=== PATIENT | female | born 1935 | race African-American/Black ===

== ENCOUNTER 2018-06-14 13:21 | Emergency (ER) | payer MEDICARE, BC ==
[~2018-06-14] VITALS: Ht 160 cm; Wt 68.0 kg
--- NOTE | ~2018-06-14 | EKG ---
[place], [place] ELECTROCARDIOGRAM REPORT NAME: ASHLEY REA UNIT #: [id number] ROOM: DOCTOR: BIANCA DRAFT REPORT BIRTHDATE: [birth year] [facility] Test Date: 2018-06-14 Test Time: 14:06:42 Pat Name: ASHLEY REA Department: Room: Gender: F [employer] Supervisor: SHITAL : 1935 Requested By: SHRUTHI HWANG Order Number: [id number] Reading MD: Mayito Vasquez MD Measurements Intervals [place] Rate: 78 P: 79 OR: 153 QRS: -40 QRSD: 95 T: 121 QT: 403 QTc: 460 Interpretive Statements Sinus rhythm Ventricular premature complex Left axis deviation Probable anteroseptal infarct, old Abnormal T, consider ischemia, lateral leads Electronically Signed On 06-17-2018 9:08:29 PDT by Mayito Vasquez MD CM:EKGRPT:ELECTROCARDIOGRAM REPORT [id number] SHRUTHI ROY DRAFT REPORT SHRUTHI HWANG DO
[2018-06-14 14:18] LABS: BASO % 0.3 % (0.0-1.0); EOS # 0.4 10*3/uL (0.0-0.4); HEMATOCRIT 33.5 % (37.0-47.0); HEMOGLOBIN 11.4 g/dl (12.0-16.0); LYMPH # 2.8 10*3/uL (1.3-4.4); LYMPH % 42.9 % (27.0-41.0); MEAN CELL VOLUME 76.3 fl (81.0-99.0); MEAN PLATELET VOLUME 10.8 fl (9.6-12.3); MONO # 0.3 10*3/uL (0.1-1.0); MONO % 4.9 % (3.0-9.0); NEUT % 45.7 % (47.0-73.0); PLATELET COUNT AUTOMATED 294 10*3/uL (130-400); RED BLOOD COUNT 4.39 10*6/uL (4.10-5.10); RED CELL DISTRI WIDTH 14.4 % (0-14.5); WHITE BLOOD COUNT 6.5 10*3/uL (4.8-10.8)
[2018-06-14 14:29] LABS: ACT PARTIAL THROMBO TIME 27.1 SECONDS (20.8-31.5)
[2018-06-14 14:35] LABS: ALKALINE PHOSPHATASE 55 U/L (45-117); BUN 15 mg/dl (7-24); CHLORIDE 109 mmol/L (98-107); CREATININE 1.02 mg/dL (0.55-1.02); LIPASE 121 U/L (73-393); POTASSIUM 3.8 mmol/L (3.5-5.1); SGOT/AST 23 IU/L (3-35); SGPT/ALT 20 U/L (12-78); SODIUM 143 mmol/L (136-145); TOTAL PROTEIN 8.8 gm/dL (6.4-8.2)
[2018-06-14 14:36] LABS: TROPONIN I < 0.015 ng/ml (<0.045)
[2018-06-14] MEDS ORDERED: PREDNISONE50 MG PO (14:51)
== END 2018-06-14 15:06 | disposition home or self-care (01) ==
LOC: ED 13:21
PROVIDERS: Emergency Medicine
DX: L25.9 Unspecified contact dermatitis, unspecified cause (principal); I10 Essential (primary) hypertension; Z88.1 Allergy status to other antibiotic agents; Z90.710 Acquired absence of both cervix and uterus